=== PATIENT | female | born 1960 | race Caucasian/White ===

== ENCOUNTER 2017-07-22 19:59 | Emergency (ER) | payer SELFPAY ==
[2017-07-22 20:08] VITALS: O2SAT 100
[2017-07-22 20:09] VITALS: BMI 32.5
[2017-07-22] MEDS ORDERED: Sodium Chloride 0.9% 1,000 ML IV STA (20:29)
[2017-07-22] MEDS ORDERED: DiphenhydrAMINE 50 mg/ml Inj IVP STA (20:30)
--- NOTE | 2017-07-22 20:34 | ED PDOC ---
Arrival/HPI - General Chief Complaint: Headache Time Seen by Provider: 07/22/17 20:08 Historian: Patient - History of Present Illness Narrative History of Present Illness (Text): 07/22/17 20:31 56yo female with PMhx of hypertension and diabetes present with complaint of frontal headache, light headedness, photophobia, nausea since this morning. Patient states she thinks she have these symptoms because her BP is high. States she don't usually check her BP at home, but compliant with her medication. She admits to previous history of similar headache, but states this time the headache lasted the whole day. She however notes that she did not take any analgesic for the headache. Also reports subjective fever. Denies nuchal ridigity, vomiting, abdominal pain, slurred speech, focal weakness, tinnitus, any other complaint. Past Medical History - Provider Review Nursing Documentation Reviewed: Yes - Reproductive Menopause: Yes Family/Social History - Physician Review Nursing Documentation Reviewed: Yes Family/Social History: Unknown Family HX Allergies/Home Meds Allergies/Adverse Reactions: Allergies No Known Allergies Allergy (Verified 07/22/17 20:14) Home Medications: Home Meds Medication Instructions Recorded Confirmed Unobtainable 07/22/17 07/22/17 Review of Systems - Physician Review All systems were reviewed & negative as marked: Yes - Review of Systems Constitutional: Normal Eyes: Photophobia. absent: Vision Changes, Eye Pain ENT: Normal Respiratory: Normal Cardiovascular: Normal Gastrointestinal: Normal Genitourinary Female: Normal Musculoskeletal: Normal Skin: Normal Neurological: Headache, Dizziness. absent: Focal Weakness, Gait Changes, Speech Changes, Facial Droop Endocrine: Normal Hemo/Lymphatic: Normal Psychiatric: Normal Physical Exam Vital Signs Reviewed: Yes Vital Signs Temp Pulse Resp BP Pulse Ox 07/22/17 22:57 98.0 F 82 17 122/77 100 07/22/17 22:50 82 17 122/77 100 07/22/17 21:53 93 H 17 121/74 100 07/22/17 20:07 98.6 F 95 H 24 146/90 100 Temperature: Afebrile Blood Pressure: Normal Pulse: Regular Respiratory Rate: Normal Appearance: Positive for: Well-Appearing, Non-Toxic, Comfortable Pain Distress: None Mental Status: Positive for: Alert and Oriented X 3 Finger Stick Blood Glucose: 313 - Systems Exam Head: Present: Atraumatic, Normocephalic Pupils: Present: PERRL Extroacular Muscles: Present: EOMI Conjunctiva: Present: Normal Mouth: Present: Moist Mucous Membranes Neck: Present: Normal Range of Motion. No: Meningeal Signs Respiratory/Chest: Present: Clear to Auscultation, Good Air Exchange. No: Respiratory Distress, Accessory Muscle Use Cardiovascular: Present: Regular Rate and Rhythm, Normal S1, S2. No: Murmurs Abdomen: No: Tenderness, Distention, Peritoneal Signs, Rebound, Guarding, McBurney's Point Tender, Rovsing's Sign Present Back: Present: Normal Inspection Upper Extremity: Present: Normal Inspection. No: Cyanosis, Edema Lower Extremity: Present: Normal Inspection. No: Edema Neurological: Present: GCS=15, CN II-XII Intact, Speech Normal, Motor Func Grossly Intact, Normal Sensory Function, Normal Cerebellar Funct, Norm Deep Tendon Reflexes, Gait Normal, Memory Normal, Normal 2Pt Descrimination, Other ( No focal neurological deficit) Skin: Present: Warm, Dry, Normal Color. No: Rashes Psychiatric: Present: Alert, Oriented x 3, Normal Insight, Normal Concentration Medical Decision Making ED Course and Treatment: 07/22/17 20:35 56yo female in ED for headache, dizziness, nausea, photophobia Labs ordered 1L NS, Reglan, Benadryl, Tylenol ordered Head Ct ordered will re asses pt. 07/22/17 23:10 On re evaluation pt noted that her headache resolved in ED. She remain neurologically intact. Head CT - negative Her BS improved in ED with hydration and insulin Result was DW the pt and she was referred to a Neuro. - Lab Interpretations Lab Results: 07/22/17 21:00 07/22/17 21:00 Lab Results 07/22/17 21:00: Sodium 136, Potassium 3.9, Chloride 96 L, Carbon Dioxide 27, Anion Gap 18, BUN 12, Creatinine 0.8, Est GFR ( Amer) > 60, Est GFR (Non- Af Amer) > 60, Random Glucose 323 H*, Calcium 9.5, Magnesium 1.5 L, Total Bilirubin 0.8, AST 21, ALT 23, Alkaline Phosphatase 68, Lactate Dehydrogenase 463, Total Creatine Kinase 49, Troponin I 0.03, Total Protein 7.3, Albumin 4.3, Globulin 3.1, Albumin/Globulin Ratio 1.4 07/22/17 21:00: PT 12.7 H, INR 1.11 H, APTT 26.7 07/22/17 21:00: WBC 9.2, RBC 4.72, Hgb 10.3 L, Hct 33.2 L, MCV 70.3 L, MCH 21.8 L, MCHC 31.0, RDW 14.8 H, Plt Count 298, MPV 10.0, Gran % 68.3 H, Lymph % (Auto ) 24.1, Amelia % (Auto) 6.0, Eos % (Auto) 1.4 L, Baso % (Auto) 0.2, Gran # 6.28, Lymph # (Auto) 2.2, Amelia # (Auto) 0.6, Eos # (Auto) 0.1, Baso # (Auto) 0.02 07/22/17 20:30: Urine Color Yellow, Urine Appearance Clear, Urine pH 6.0, Ur Specific [place] <= 1.005, Urine Protein Negative, Urine Glucose (UA) >=1000, Urine Ketones Negative, Urine Blood Negative, Urine Nitrate Negative, Urine Bilirubin Negative, Urine Urobilinogen 0.2, Ur Leukocyte Esterase Negative - RAD Interpretation Radiology Orders: 07/22/17 20:30 HEAD W/O CONTRAST [CT] Stat - Medication Orders Current Medication Orders: Discontinued Medications Acetaminophen (Tylenol 325mg Tab) 975 mg PO STAT STA Stop: 07/22/17 20:31 Last Admin: 07/22/17 20:51 Dose: 975 mg Diphenhydramine HCl (Benadryl) 25 mg IVP STAT STA Stop: 07/22/17 20:31 Last Admin: 07/22/17 20:51 Dose: 25 mg IVP Administration Document 07/22/17 20:51 IT (Rec: 07/22/17 20:51 IT [id number]) Charges for Administration # of IVP Administrations 1 Sodium Chloride (Sodium Chloride 0.9%) 1,000 mls @ 999 mls/hr IV .Q1H1M STA Stop: 07/22/17 21:29 Last Admin: 07/22/17 20:51 Dose: 999 mls/hr eMAR Start Stop Document 07/22/17 20:51 IT (Rec: 07/22/17 20:51 IT [id number]) Intravenous Solution Start Date 07/22/17 Start Time 20:51 End Date 07/22/17 Insulin Human Regular (Humulin R) 6 units IVP ONCE STA Stop: 07/22/17 21:47 Last Admin: 07/22/17 22:33 Dose: 6 units MAR Blood Glucose Document 07/22/17 22:33 IT (Rec: 07/22/17 22:33 IT [id number]) Blood Glucose Finger Stick Blood Glucose (70-120) 313 IVP Administration Document 07/22/17 22:33 IT (Rec: 07/22/17 22:33 IT [id number]) Charges for Administration # of IVP Administrations 1 Metoclopramide HCl (Reglan) 10 mg IVP STAT STA Stop: 07/22/17 20:31 Last Admin: 07/22/17 20:51 Dose: 10 mg IVP Administration Document 07/22/17 20:51 IT (Rec: 07/22/17 20:51 IT [id number]) Charges for Administration # of IVP Administrations 1 Disposition/Present on Arrival - Present on Arrival Any Indicators Present on Arrival: No History of DVT/PE: No History of Uncontrolled Diabetes: Yes Urinary Catheter: No History of Decub. Ulcer: No History Surgical Site Infection Following: None - Disposition Have Diagnosis and Disposition been Completed?: Yes Diagnosis: Headache, Dizziness, Hyperglycemia Disposition: HOME/ ROUTINE Disposition Time: 22:50 Patient Plan: Discharge Condition: STABLE Discharge Instructions (ExitCare): Headache, Adult (DC) Additional Instructions: Follow up with your doctor/Neurologist Return to ED for any new or worsening symptoms Referrals: Ayush Reyes MD [Primary Care Provider] - Follow up with primary Ella Gotti MD [Staff Provider] - Follow up with primary Forms: [employer] ([place])
[2017-07-22 20:56] LABS: URINE BILIRUBIN NEGATIVE (NEGATIVE); URINE BLOOD NEGATIVE (NEGATIVE); URINE GLUCOSE (UA) >=1000 mg/dL (NEGATIVE); URINE LEUKOCYTE ESTERASE NEGATIVE Leu/uL (NEGATIVE); URINE PROTEIN NEGATIVE mg/dL (<30 mg/dL); URINE UROBILINOGEN 0.2 E.U./dL (<1 E.U./dL)
[2017-07-22 20:58] LABS: URINE APPEARANCE CLEAR (CLEAR); URINE COLOR YELLOW (YELLOW)
[2017-07-22 21:26] LABS: BASO # 0.02 K/mm3 (0.0-2.0); BASO % 0.2 % (0.0-3.0); EOS # 0.1 (0.0-0.7); EOS % 1.4 % (1.5-5.0); GRAN # 6.28 (1.4-6.5); GRAN % 68.3 % (50.0-68.0); HEMOGLOBIN 10.3 g/dL (12.0-16.0); LYMPH # 2.2 (1.2-3.4); LYMPH % 24.1 % (22.0-35.0); MEAN CELL VOLUME 70.3 fl (80.0-105.0); MEAN CORPUSCULAR HEMOGLOBIN 21.8 pg (25.0-35.0); MONO # 0.6 (0.1-0.6); RBC 4.72 10^6/uL (3.5-6.1); RED CELL DISTRIBUTION WIDTH 14.8 % (11.5-14.5); WHITE BLOOD COUNT 9.2 10^3/ul (4.5-11.0)
[2017-07-22 21:31] LABS: INR 1.11 (0.93-1.08); PARTIAL THROMBOPLASTIN TIME 26.7 Seconds (25.1-36.5); PROTHROMBIN TIME 12.7 SECONDS (9.4-12.5)
[2017-07-22 21:40] LABS: TROPONIN I 0.03 ng/mL
--- NOTE | 2017-07-22 21:40 | CT ---
EXAM: CT Head Without Intravenous Contrast CLINICAL HISTORY: 56 years old, female; Signs and symptoms; Dizziness; Patient HX: Headache/dizziness TECHNIQUE: Axial computed tomography images of the head/brain without intravenous contrast. All CT scans at this facility use one or more dose reduction techniques, viz.: automated exposure control; ma/kV adjustment per patient size (including targeted exams where dose is matched to indication; i.e. head); or iterative reconstruction technique. Coronal and sagittal reformatted images were created and reviewed. COMPARISON: No relevant prior studies available. FINDINGS: Brain: No hemorrhage. No significant white matter disease. No edema. Ventricles: No hydrocephalus. Bones: Skull is intact. Sinuses: No acute sinusitis. Mastoid air cells: No mastoid effusion. IMPRESSION: No CT evidence of acute intracranial abnormality.
[2017-07-22] MEDS ORDERED: Insulin Regular 1 UNITS/0.01 ML ML IVP STA (21:46)
[2017-07-22 21:51] LABS: ALB/GLOB RATIO 1.4 (1.1-1.8); ALBUMIN 4.3 g/dL (3.0-4.8); ALT/SGPT 23 U/L (7-56); AST/SGOT 21 U/L (14-36); BLOOD UREA NITROGEN 12 mg/dL (7-21); CALCIUM 9.5 mg/dL (8.4-10.5); GFR AFRICAN-AMERICAN > 60; GFR NON-AFRICAN AMERICAN > 60
[2017-07-22 21:54] VITALS: RESP 17
[2017-07-22 22:50] VITALS: BP 122/77; PULSE 82
[2017-07-22 22:58] VITALS: TEMP 98
== END 2017-07-22 22:58 | disposition home or self-care (01) ==
LOC: ED 19:59 → MERGE 19:59 → ED 22:58
DX: E11.65 Type 2 diabetes mellitus with hyperglycemia (principal); R51 Headache; R42 Dizziness and giddiness; I10 Essential (primary) hypertension
CPT/HCPCS: 70450; 80053; 81003; 82550; 83615; 83735; 84484; 85025; 85610; 85730; 96374; 96375; 99285; J1200; J2765; J7040